=== PATIENT | male | born 1985 | race Two or more races ===

== ENCOUNTER 2021-09-13 01:38 | Emergency (ER) | payer OTHER ==
[~2021-09-13] VITALS: Ht 170.2 cm; Wt 103.6 kg
[~2021-09-13 01:38] MED LIST: NOCURR
[2021-09-13] MEDS ORDERED: KETOROLAC TROMETHAMINE 10 MG TABLET PO ONE (02:30)
[2021-09-13 03:30] VITALS: BP 127/78
== END 2021-09-13 04:06 | disposition home or self-care (01) ==
LOC: EMS 01:38
DX: S93.401A Sprain of unspecified ligament of right ankle, initial encounter (principal); W10.8XXA Fall (on) (from) other stairs and steps, initial encounter; Y93.89 Activity, other specified; Y92.89 Other specified places as the place of occurrence of the external cause; Y99.8 Other external cause status
CPT/HCPCS: 99283

== ENCOUNTER 2021-12-05 12:11 | Emergency (ER) | payer OTHER ==
[~2021-12-05] VITALS: Ht 170.2 cm; Wt 102.3 kg
[2021-12-05 12:33] VITALS: BP 128/91
[2021-12-05] MEDS ORDERED: MORPHINE SULFATE 4 MG/ML SYRINGE IVP ONE ×2 (13:15→15:15)
[2021-12-05] MEDS ORDERED: ACETAMINOPHEN 325 MG TABLET PO ONE (15:15)
[2021-12-05] MEDS ORDERED: KETOROLAC TROMETHAMINE 30 MG/ML VIAL IVP ONE (15:15)
[2021-12-05] MEDS ORDERED: LIDOCAINE 5% TRANSDERMAL PATCH TD ONE (18:15)
== END 2021-12-05 18:28 | disposition home or self-care (01) ==
LOC: EMS 12:12
DX: M25.522 Pain in left elbow (principal); M25.532 Pain in left wrist; M25.512 Pain in left shoulder; Z88.5 Allergy status to narcotic agent; W19.XXXA Unspecified fall, initial encounter; Y93.66 Activity, soccer; Y92.89 Other specified places as the place of occurrence of the external cause; Y99.8 Other external cause status
CPT/HCPCS: 73030; 73060; 73080; 73090; 73110; 73130; 73200; 96374; 96375; 96376; 99284; J1885; J2270

== ENCOUNTER 2022-09-04 16:38 | Emergency (ER) | payer OTHER ==
[~2022-09-04] VITALS: Ht 170.2 cm; Wt 113.6 kg
[2022-09-04 17:25] VITALS: BP 112/85
[2022-09-04] MEDS ORDERED: IBUPROFEN 600 MG TABLET PO ONE (17:30)
[2022-09-04] MEDS ORDERED: HYDROCODONE/ACETAMINOPHEN 5-325 MG TABLET PO ONE (18:15)
[2022-09-04] MEDS ORDERED: IBUP-2070 PO (18:48)
== END 2022-09-04 19:05 | disposition home or self-care (01) ==
LOC: EMS 16:41
DX: S93.402A Sprain of unspecified ligament of left ankle, initial encounter (principal); Z88.5 Allergy status to narcotic agent; X50.1XXA Overexertion from prolonged static or awkward postures, initial encounter; Y93.89 Activity, other specified; Y92.89 Other specified places as the place of occurrence of the external cause; Y99.8 Other external cause status
CPT/HCPCS: 99283

== ENCOUNTER 2024-04-08 08:14 | Emergency (ER) | payer MEDICAID, OTHER ==
[~2024-04-08] VITALS: Ht 170.2 cm; Wt 109.1 kg
[~2024-04-08 08:14] MED LIST changes: +IBUP-1492 PO; -NOCURR
[2024-04-08 08:19] VITALS: TEMP 98.2
[2024-04-08 09:58] VITALS: BP 142/90; PULSE 87; RESP 18
== END 2024-04-08 10:15 | disposition home or self-care (01) ==
LOC: EMS 08:14
DX: S63.615A Unspecified sprain of left ring finger, initial encounter (principal); W21.02XA Struck by soccer ball, initial encounter; Y93.66 Activity, soccer; Y92.89 Other specified places as the place of occurrence of the external cause; Y99.8 Other external cause status
CPT/HCPCS: 99283